=== PATIENT | female | born 1985 | race American Indian/Alaskan Native ===

== ENCOUNTER 2023-07-17 17:41 | Emergency (ER) | payer OTHER ==
[2023-07-17 18:39] LABS: BILIRUBIN,URINE NEGATIVE (NEGATIVE); GLUCOSE, URINE (UA) NEGATIVE (NEGATIVE); KETONES,URINE (UA) NEGATIVE (NEGATIVE); LEUKOCYTE ESTERASE, URINE TRACE (NEGATIVE); NITRITE,URINE NEGATIVE (NEGATIVE); OCCULT BLOOD,URINE MODERATE (NEGATIVE); PROTEIN,URINE NEGATIVE (NEGATIVE); UROBILINOGEN,URINE 0.2 (NORMAL) E.U./dL (NORMAL)
[2023-07-17 18:42] LABS: CLARITY,URINE CLEAR (CLEAR); HCG UR QUAL NEGATIVE
[2023-07-17 19:18] LABS: BACTERIA,URINE None Seen /HPF (None Seen); SQUAMOUS EPITHELIAL CELL,UR NONE SEEN (<= Few); WBC,URINE 0-3 /HPF (0-5)
[2023-07-17] MEDS ORDERED: cephALEXin 250 MG CAPSULE PO STA (19:34)
--- NOTE | 2023-07-17 19:36 | ED Physician Documentation ---
History of Present Illness - Stated complaint Stated Complaint: BACK PX/ - Chief complaint Chief Complaint: Abd Pain - Additonal information Additional information: 37-year-old female presents emergency department for evaluation of 2 to 3 days dysuria urgency and frequency. Does not feel like she fully empties her bladder. Over the last 24 hours she has begun having some low back pain and a constant pressure in her lower abdomen. She states she has a history of renal colic and ureter colic but this feels different. She has noticed some hematuria in her blood this morning. She states that since she is arrived to the emergency department she is urinated at least 8 times. Review of Systems Constitutional: denies: Fever Cardiac: reports: Reviewed and negative Respiratory: reports: Reviewed and negative GI: reports: Abdominal Pain : reports: Dysuria, Frequency, Hematuria PD PAST MEDICAL HISTORY - Present Medications Home Medications: Ambulatory Orders Medication Instructions Recorded Confirmed Hydroxychloroquine [Plaquenil] 200 mg PO BID 07/17/23 07/17/23 Lansoprazole [Prevacid] 30 mg PO DAILY 07/17/23 07/17/23 Ursodiol [Alida] 250 mg PO BID 07/17/23 07/17/23 cephALEXin [Keflex] 500 mg PO TID #21 cap 07/17/23 - Allergies Allergies/Adverse Reactions: Allergies Allergy/AdvReac Type Severity Reaction Status Date / Time No Known Drug Allergies Allergy Verified 07/17/23 17:45 PD ED PE NORMAL - General General: Alert and oriented X 3 - HEENT HEENT: Atraumatic - Cardiac Cardiac: RRR, No murmur - Respiratory Respiratory: No respiratory distress - Abdomen Abdomen: Normal bowel sounds, Soft, Non tender (Mild suprapubic tenderness no guarding or rebound.) - Back Back: No CVA TTP - Derm Derm: Normal color, Warm and dry, No rash - Extremities Extremities: No deformity - Neuro Neuro: Alert and oriented X 3 Eye Opening: Spontaneous Motor: Obeys Commands Verbal: Oriented GCS Score: 15 Results - Vitals Vitals: Vital Signs - 24 hr 07/17/23 17:46 Temperature 36.7 C Heart Rate 74 Respiratory 18 Rate Blood Pressure 130/73 O2 Saturation 99 - Labs Labs: Laboratory Tests 07/17/23 18:30 Urine Color YELLOW Urine Clarity CLEAR Urine pH 6.0 Ur Specific [place] 1.010 Urine Protein NEGATIVE Urine Glucose (UA) NEGATIVE Urine Ketones NEGATIVE Urine Occult Blood MODERATE H Urine Nitrite NEGATIVE Urine Bilirubin NEGATIVE Urine Urobilinogen 0.2 (NORMAL) Ur Leukocyte Esterase TRACE H Urine RBC 6-10 H Urine WBC 0-3 Ur Squamous Epith Cells NONE SEEN Urine Bacteria None Seen Ur Microscopic Review INDICATED Urine Culture Comments INDICATED Urine HCG, Qual NEGATIVE PD Medical Decision Making - ED course Complexity details: d/w patient ED course: 37-year-old female presents emergency department for evaluation of several days dysuria urgency and frequency as well as hematuria. Has a history of renal colic but this feels different. Since arriving to the emergency department she is urinated at least 8 times. Has sensation of incomplete bladder emptying. Urinalysis today shows hematuria but no other markers of infection. Abdominal exam reveals mild suprapubic tenderness but no flank or CVA pain. Clinically despite other markers of infection in the urine I am most suspicious for an acute cystitis and will treat her with a short course of Keflex. I discussed with patient however that if the symptoms fail to resolve with 2-3 doses of antibiotics would be appropriate to consider CT imaging of the abdomen. Departure - Departure Disposition: 01 Home, Self Care Clinical Impression: Urinary frequency Condition: Stable Record reviewed to determine appropriate education?: Yes Prescriptions: cephALEXin [Keflex] 500 mg PO TID #21 cap Comments: Stefanie I have sent a prescription for some Keflex and antibiotic to the [facility] in [place]. You will take it 3 times a day for the next week. Your first dose was given tonight in the ER. Your urine shows blood but no other markers of infection. However the slight discomfort, pressure as well as frequency is suspicious for a urinary infection and we will treat you as such. If you find your symptoms or not improving despite 3-4 doses of antibiotics, you develop fevers have flank pain or vomiting then please return immediately to the ER for repeat evaluation.
[2023-07-17 19:50] VITALS: BP 123/73; O2SAT 100
== END 2023-07-17 19:46 | disposition home or self-care (01) ==
LOC: ED 17:41
DX: R30.0 Dysuria (principal); R39.15 Urgency of urination; R35.0 Frequency of micturition; R31.9 Hematuria, unspecified
CPT/HCPCS: 81001; 81025; 87086; 99283; 99284; A9270; 81003

== ENCOUNTER 2024-05-08 06:57 | Outpatient (CLI) | payer OTHER ==
--- NOTE | 2024-05-08 16:49 | Ultrasound Report ---
PROCEDURE: Abdomen Complete INDICATIONS: DYSPEPSIA TECHNIQUE: Real-time scanning was performed of the abdominal and retroperitoneal organs, with image documentatio n. COMPARISON: None. FINDINGS: Liver: Normal size liver with mildly hyperechoic, heterogeneous parenchyma. No discrete lesion. Gallbladder: Surgically absent. Biliary ducts: Intrahepatic bile ducts are non-dilated. Extrahepatic bile duct caliber measures 6.3 mm. Normal is 6-7 mm or less in diameter, or 10 mm or less post-cholecystectomy. Pancreas: Visualized portions of the pancreas are sonographically normal. Spleen: Spleen is normal in size and homogeneous in echotexture. Kidneys: Kidneys are normal in size and echotexture. Right kidney measures 11.6 cm long; left kidne y measures 12.4 cm long. No hydronephrosis or nephrolithiasis. No solid masses. No complex renal cy stic lesions which require follow-up. Aorta: Visualized aorta is normal in caliber at less than 3 cm. Iliacs: Proximal common iliac arteries are normal in caliber at less than 2.5 cm. IVC: Intrahepatic inferior vena cava is patent. Miscellaneous: No free abdominal fluid. IMPRESSION: Heterogeneous, hyperechoic hepatic parenchyma may indicate hepatic steatosis or other intrinsic liver disease. Correlate with LFTs. Status post cholecystectomy without evidence of biliary dilatation. Reviewed by: Vonnie Veliz MD on 05/08/2024 4:48 PM PDT Approved by: Vonnie Veliz MD on 05/08/2024 4:48 PM PDT Station ID: [id number]
== END 2024-05-08 06:58 | disposition home or self-care (01) ==
LOC: DI 06:57
PROVIDERS: ATTEND Physician Assistant
DX: K30 Functional dyspepsia (principal); R93.2 Abnormal findings on diagnostic imaging of liver and biliary tract; Z90.49 Acquired absence of other specified parts of digestive tract